=== PATIENT | male | born 1985 | race Caucasian/White ===

== ENCOUNTER 2019-09-28 19:54 | Emergency (ER) | payer OTHER, SELFPAY ==
[2019-09-28 20:17] VITALS: BP 124/80; PULSE 72; RESP 18; TEMP 36.6; O2SAT 97
--- NOTE | 2019-09-28 20:27 | DI.RAD.S_ITS ---
PROCEDURE: XR CHEST 2V INDICATIONS: chest pressure,cough,sob TECHNIQUE: 2 views of the chest were acquired. COMPARISON: None. FINDINGS: Surgical changes and devices: None. Lungs and pleura: Lungs are clear. No pleural effusions or pneumothorax. Mediastinum: Mediastinal contours are normal. Heart size is normal. Bones and chest wall: No suspicious bony abnormalities. Soft tissues appear unremarkable. IMPRESSION: No acute cardiopulmonary disease process. Dictated by: Mena Miles MD, PhD on 09/28/2019 at 20:44 Approved by: Mena Miles MD, PhD on 09/28/2019 at 20:44
--- NOTE | 2019-09-28 20:59 | ED_ITS ---
HPI - URI/Sore Throat General Chief Complaint: Upper Respiratory Symptoms Stated Complaint: has a cough, sent by [facility] Time Seen by Provider: 09/28/19 20:00 Source: family Mode of arrival: Ambulatory Limitations: no limitations History of Present Illness HPI Narrative: 34-year-old male never smoker with history of seasonal allergies presents with his significant other in the chief complaint of runny nose, cough, pleuritic-type chest pain for the past few days. They presented initially to the walk-in clinic but upon complaint of chest pain they redirected him here to the emergency department. He states his chest pain is sharp and stabbing worse with deep breath and cough. He denies any hemoptysis or purulent sputum. He has had no fever or chills. He does admit to runny nose and sore throat as stated. He does not have difficulty in swallowing. He denies body aches or joint pain MD Complaint: cough and rhinorrhea Onset (ago): day(s) Duration: constant Severity: mild Relieving factors: rest Able to tolerate fluids by mouth: Yes Associated symptoms: chest pain Treatments prior to arrival: cold medicine Related Data Previous Rx's Medication Instructions Recorded benzonatate [Tessalon Perles] 100 mg PO TID PRN #14 cap 09/28/19 promethazine-codeine 5 ml PO Q4-6H PRN #473 ml 09/28/19 Allergies Allergy/AdvReac Type Severity Reaction Status Date / Time amoxicillin Allergy Verified 09/28/19 20:46 Review of Systems Constitutional Constitutional: Denies chills, Denies fatigue, Denies fever(s), Denies frequent falls, Denies lethargy and Denies weakness Eyes Eyes: Denies change in vision, Denies eye discharge, Denies irritation and Denies loss of vision ENT Ears, Nose, Mouth, and Throat: Denies change in voice, Denies dizziness, Denies neck pain, Denies sore throat and Denies throat swelling Cardiovascular Cardiovascular: Denies chest pain, Denies irregular heart rhythm, Denies lightheadedness, Denies palpitations, Denies dyspnea, Denies dyspnea on exertion and Denies orthopnea Respiratory Respiratory: Reports cough, Denies dyspnea and Denies dyspnea on exertion Gastrointestinal Gastrointestinal: Denies abdominal pain, Denies change in bowel habits, Denies diarrhea, Denies nausea and Denies vomiting Genitourinary Genitourinary: Denies hematuria, Denies flank pain, Denies urinary incontinence and Denies urinary urgency Musculoskeletal Musculoskeletal: Denies back pain, Denies muscle weakness, Denies neck pain, Denies numbness and Denies tingling Integumentary/Breasts Skin/Breast: Denies pruritus, Denies erythema, Denies rash and Denies wounds Neurologic Neurologic: Denies behavioral changes, Denies confusion, Denies dizziness, Denies frequent falls, Denies loss of vision, Denies numbness, Denies tingling and Denies weakness Psychiatric Psychiatric: Denies anxiety, Denies behavioral changes, Denies confusion, Denies depression, Denies homicidal ideation and Denies suicidal ideation Endocrine Endocrine: Denies fatigue, Denies flushing and Denies palpitations Hematologic/Lymphatic Hematologic/Lymphatic: Denies easy bruising Allergic/Immunologic Allergic/Immunologic: Denies urticaria and Denies throat swelling Patient History Social History Smoking Status: Never smoker Smoking Status: Never smoker Substance Use Type: does not use Exam Narrative Exam Narrative: GENERAL: [34] year old patient appears stated age. Well- nourished, well-developed patient, in mild distress. HEAD: Atraumatic. Normocephalic. EYES: Pupils equal round and reactive. Extraocular motions intact. No scleral icterus. No injection or drainage. ENT: Nose without bleeding, purulent drainage. Throat without erythema, tonsillar hypertrophy or exudate. Airway patent. NECK: Trachea midline. Non tender CARDIOVASCULAR: Regular rate and rhythm without murmurs, gallops, or rubs. RESPIRATORY: Clear to auscultation. Breath sounds equal bilaterally. No wheezes, rales, or rhonchi. Deep breath illicits hacking cough GASTROINTESTINAL: Abdomen soft, non-tender, nondistended. EXTREMITIES: No edema or joint tenderness. BACK: Nontender without deformity or crepitance. No flank tenderness. NEURO: AOx3. SKIN: No rash or erythema of visible areas Initial Vital Signs Initial Vital Signs: Vital Signs Temperature 97.9 F 09/28/19 20:17 Pulse Rate 72 09/28/19 20:17 Respiratory Rate 18 09/28/19 20:17 Blood Pressure 124/80 09/28/19 20:17 Pulse Oximetry 97 09/28/19 20:17 Course Course Course Narrative: There given bronchospastic type cough patient given a DuoNeb and experiences tremendous relief. If chest x-ray is clear. She cardiac disease considered given his complaint of chest pain, however this is sharp, stabbing, pleuritic in nature. Patient has no provocation of symptoms with exertion or other cardiac symptoms such as dizziness, weakness, lightheadedness nor radiation of pain, vomiting or diaphoresis. Return precautions given and patient has had questions answered to his apparent satisfaction Orders Ordered: ED Orders 09/28/19 20:26 EKG-12 Lead Stat 09/28/19 20:27 Chest [XR chest 2V] Stat Discontinued Medications Acetaminophen/Codeine Phosphate (Tylenol Oral Julianne 120-12 Mg/5 Ml) 10 ml PO NOW ONE Stop: 09/28/19 21:41 Last Admin: 09/28/19 21:46 Dose: 10 ml Documented by: FIONA Albuterol (Ventolin Hfa Prepack) 1 box MISC SEEINSTR ONE Stop: 09/28/19 21:50 Last Admin: 09/28/19 22:07 Dose: 1 box Documented by: PORTIA Albuterol/Ipratropium (Duoneb) 3 ml INH NOW ONE Stop: 09/28/19 21:41 Last Admin: 09/28/19 21:43 Dose: 3 ml Documented by: PORTIA Vital Signs Vital signs: Vital Signs - 8 hr 09/28/19 20:17 09/28/19 21:44 09/28/19 22:08 Temperature 97.9 F Pulse Rate 72 62 65 Respiratory Rate 18 18 15 Blood Pressure 124/80 127/67 Pulse Oximetry 97 98 98 MDM - URI/Sore Throat Imaging Data Chest x-ray: Radiologist's Impression: BradSin moran Yvette 34 M [address] [address] XRay Report Signed Patient: Sin Camarena EMR#: [id number] : 1985Acct:[id number] Age/Sex: 34 / MDate of Service: 09/28/19 Loc: ED Accession Number: [id number] Procedure: XR chest 2V Ordering Provider: Joce Freeman D.O. PROCEDURE: XR CHEST 2V INDICATIONS: chest pressure,cough,sob TECHNIQUE: 2 views of the chest were acquired. COMPARISON: None. FINDINGS: Surgical changes and devices: None. Lungs and pleura: Lungs are clear. No pleural effusions or pneumothorax. Mediastinum: Mediastinal contours are normal. Heart size is normal. Bones and chest wall: No suspicious bony abnormalities. Soft tissues appear unremarkable. IMPRESSION: No acute cardiopulmonary disease process. Dictated by: Mena Miles MD, PhD on 09/28/2019 at 20:44 Approved by: Mena Miles MD, PhD on 09/28/2019 at 20:44 Discharge Plan Departure Patient Disposition: Home Clinical Impression: Upper respiratory infection Qualifiers: URI type: unspecified viral URI Qualified Code(s): J06.9 - Acute upper respiratory infection, unspecified Discharge Date/Time: 09/28/19 22:12 Instructions: DI for Acute Bronchitis Activity Restrictions/Additional Instructions: *You have been diagnosed with [acute viral upper respiratory infection with bronchospasm] *What to do: *Take medications as directed:Sent to [facility] at your request *Follow up with your primary care provider in 2-3 days, call for an appointment. Let them know you were seen in the Emergency Department and that we ask that you be seen in follow up *Return to ER if you should have any new, worsening or concerning symptoms Prescriptions: New benzonatate [Tessalon Perles] 100 mg capsule 100 mg PO TID PRN (Reason: cough) Qty: 14 RF: 0 promethazine-codeine 6.25-10 mg/5 mL syrup 5 ml PO Q4-6H PRN (Reason: cough) Qty: 473 RF: 0
[2019-09-28] MEDS: ALBUTEROL/IPRATROPIUM 3 ML AMPUL INH (21:43)
[2019-09-28 21:44] VITALS: PULSE 62; RESP 18; O2SAT 98
[2019-09-28] MEDS: ACETAMINOPHEN/CODEINE SOLN 5 ML SOLUTION 10 ML PO (21:46)
[2019-09-28] MEDS: ALBUTEROL HFA PREPACK 1 BOX MISC (22:07)
[2019-09-28 22:08] VITALS: BP 127/67; PULSE 65; RESP 15; O2SAT 98
== END 2019-09-28 22:12 | disposition home or self-care (01) ==
PROVIDERS: Emergency Provider Emergency Medicine
DX: J06.9 Acute upper respiratory infection, unspecified (principal)
CPT/HCPCS: 71046; 93005; 94640; 99284